=== PATIENT | male | born 1960 | race Caucasian/White ===

== ENCOUNTER 2022-04-12 06:46 | Day surgery (SDC) | payer OTHER ==
[~2022-04-12 06:46] MED LIST: COZAAR100 MG PO
[2022-04-12] MEDS ORDERED: PERCOCET 5-3251 EACH PO (09:49)
== END 2022-04-12 12:40 | disposition home or self-care (01) ==
LOC: EDSEX 06:46 → CIR.AMB 06:46
PROVIDERS: ATTEND Surgery
DX: N52.01 Erectile dysfunction due to arterial insufficiency (principal); I10 Essential (primary) hypertension; Z86.16 Personal history of COVID-19; Z87.891 Personal history of nicotine dependence